=== PATIENT | female | born 1975 | race Caucasian/White ===

== ENCOUNTER → 2017-04-10 | Outpatient (CLI) | payer MEDICAID, MEDICARE ==
--- NOTE | 2017-04-10 15:35 | Diagnostic Imaging Report ---
EXAMINATION: Pelvic ultrasound. INDICATION: Pelvic pain. FINDINGS: There are no previous studies available for comparison. The uterus is nongravid and not enlarged measuring 8.8 x 5.7 x 5.1 cm. Endometrium is not thickened measuring 3 mm. Along the posterior aspect of the uterine fundus, there is a 1.4 x 1.2 x 1.4 cm hypoechoic area. This does suggest a small fibroid. The right ovary is surgically absent. The left ovary contains two roughly 1 CM follicles/cysts. These have a generally benign appearance. There is no solid pelvic mass or free fluid collection noted. IMPRESSION: 1. The uterus is not enlarged, but there does appear to be a small fibroid along the posterior aspect of the uterine fundus. 2. There are two roughly 1 cm cysts/follicles associated with the left ovary. These have a generally benign appearance. 3. The right ovary is surgically absent. 4. There is no acute pelvic abnormality noted. Dictated by: Dictated on workstation # [id number]
== END ==
LOC: EDBD → RAD 14:07
PROVIDERS: ATTEND Nurse Practitioner Family
DX: N83.02 Follicular cyst of left ovary (principal); Z90.721 Acquired absence of ovaries, unilateral; R10.2 Pelvic and perineal pain; N91.2 Amenorrhea, unspecified
CPT/HCPCS: 76830; 76856